=== PATIENT | female | born 1965 | race Caucasian/White ===

== ENCOUNTER → 2020-04-07 08:43 | Outpatient (BNVA) | payer OTHER, SELFPAY | PROVIDERS: PCP Internal Medicine; Visit Provider Student in an Organized Health Care Education/Training Program | DX: Z76.89 Persons encountering health services in other specified circumstances (principal) ==

== ENCOUNTER 2020-05-24 08:08 | Outpatient (REF) | payer OTHER, SELFPAY ==
--- NOTE | ~2020-05-24 | MR_ITS ---
EXAMINATION: MR KNEE WITHOUT CONTRAST, RIGHT CLINICAL INFORMATION: M25.561 - Pain in right knee. Instability. COMPARISON: None TECHNIQUE: MRI of the knee without contrast was performed using routine sequences on a high-field scanner. FINDINGS: MENISCI: Medial Meniscus: Free edge fraying is present at the posterior horn. No meniscal tears. Meniscal body is partially. Lateral Meniscus: Intact LIGAMENTS: Cruciate: Intact Collateral: Intact EXTENSOR MECHANISM: Insall-Salvati ratio is 0.9. Quadriceps and patellar tendons are intact. Focal edema signal is present in the superolateral Hoffa's fat pad between the patellar tendon and lateral trochlear facet. ARTICULAR CARTILAGE/BONE: Patellofemoral Compartment: There is moderate nonuniform and talar cartilage loss at the patella, more pronounced at the medial facet, with foci of full-thickness chondral fissuring, articular cortical irregularity, and subchondral cystic change. Subchondral cystic changes more pronounced at the lateral patellar facet inferiorly. Small to moderate size marginal osteophytes. At the medial trochlear facet, there is a 1.2 x 0.8 cm area of moderate to high-grade cartilage loss with full-thickness chondral fissuring and articular cortical irregularity. More mild chondral thinning is present in the surrounding trochlea. Medial Compartment: There is moderate to high-grade nonuniform and talar cartilage loss at the medial condyle, most severe at the posterior weightbearing surface, with articular cortical irregularity, subchondral sclerosis, subchondral cystic change. Mild to moderate nonuniform chondral thinning is present at the medial tibial plateau. Prominent marginal osteophytes. Lateral Compartment: Minimal chondral thinning is noted at the lateral tibial plateau anteriorly. JOINT FLUID AND BURSAE: Small joint effusion and a small multilocular Burton's cyst. There is an 8 mm cluster of low signal intensity loose body in the superior aspect of the Burton's cyst. A small amount chondral debris is present in the gastrocnemius recesses. MR/MR knee RT wo con IMPRESSION: 1. . Fraying at the posterior horn of the medial meniscus without a discrete tear. 2. Moderate medial compartment osteoarthritis. More mild to moderate osteoarthritis in the patellofemoral compartment. 3. Small joint effusion. An 8 mm loose body is present in the Burton's cyst superiorly.
== END 2020-05-24 08:09 | disposition home or self-care (01) ==
LOC: HO.MRI 08:08
PROVIDERS: Visit Provider Student in an Organized Health Care Education/Training Program
DX: M25.561 Pain in right knee (principal)
CPT/HCPCS: 73721

== ENCOUNTER 2022-11-21 08:02 | Outpatient (AMB) | payer OTHER, SELFPAY ==
[2022-11-21 08:40] VITALS: BP 140/76; PULSE 89; O2SAT 98; BMI 32.6
--- NOTE | 2022-11-21 08:40 | A.OFFVIS_ITS ---
Intake Vital Signs 11/21/22 08:40 Height 5 ft 7 in Weight 208 lb 1.862 oz BMI 32.6 BP 140/76 H Blood Pressure Location Lt brachial Position Sitting Pulse 89 Pulse Source Pulse Oximeter Pulse Oximetry (%) 98 Intake Visit Reasons: FM Intake Note: Pt seen today for FM follow up. Media/Instructional Designer Required: No Accompanied by: Self / Same As Patient Allergies penicillin V Allergy (Intermediate, Verified 11/21/22 08:41) Vomiting Erythromycin Allergy (Intermediate, Uncoded 11/21/22 08:41) vomiting Medication List - Last Reconciled 11/21/22 by Unruly Villalobos MD amlodipine 5 mg PO DAILY dulaglutide (Trulicity) 0.75 mg subcut QWEEK glipizide 5 mg PO DAILY ibuprofen 400 mg PO Q8H PRN insulin glargine (Lantus Solostar U-100 Insulin) units subcut losartan-hydrochlorothiazide 100-25 mg 1 tab PO DAILY HPI HPI Comments History of Present Illness Details This is a 57-year-old female with a past medical history of hand osteoarthritis who presents for evaluation of bilateral hand pain. Patient has pain in both and especially her PIP is and DIPs. The pain is worse in the morning and sometimes when going to bed. She takes ibuprofen 600 mg Twice daily to help the pain. She stated that she has had occupational therapy for her hands many years ago. She also has been having neck pain. Sometimes radiates to her right shoulder. She went to urgent care and was prescribed a muscle relaxant. She is unaware of any family history of autoimmune rheumatic disease. She also mentions that when warm water hits the skin on her legs she feels pain in her skin. 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 Female Reproductive History Menstrual Total pregnancies: 3 Number of Living Children: 3 Ab induced: 0 Review of Systems ENT Reports neck pain Musc Reports arthralgias and Reports neck pain Physical Exam Vital Signs: Last Vital Signs Pulse 89 11/21/22 08:40 BP 140/76 H 11/21/22 08:40 Pulse Ox 98 11/21/22 08:40 BMI result Body Mass Index 32.6 Const General: cooperative, healthy appearing and comfortable Nutritional Appearance: obese Orientation/consciousness: patient oriented x3 Limitations: no limitations HEENT Head: Yes normocephalic and Yes atraumatic Mouth: moist mucous membranes Resp Effort & Inspection: normal respiratory effort and able to speak in complete sentences Neuro General: patient oriented x3 Extrem Other: Bilateral Serenity's and Heberden's nodes that are mildly tender to palpation No active synovitis otherwise Negative Spurling's test bilateral Bilateral knee crepitus Assessment & Plan Assessment & Plan (1) Osteoarthritis of hands, bilateral: Code(s): M19.041 - Primary osteoarthritis, right hand; M19.042 - Primary osteoarthritis, left hand Qualifiers: Osteoarthritis type: primary Qualified Code(s): M19.041 - Primary osteoarthritis, right hand; M19.042 - Primary osteoarthritis, left hand Plan: This is a 57-year-old female with generalized osteoarthritis who presents for follow-up. Was last seen by Dr. Tanner in 2019. I do not see any signs of autoimmune rheumatic disease. Clinical picture consistent with bilateral hand osteoarthritis. Will check bilateral hand x-rays. Referred patient to occupational therapy. Advised patient to start using Tylenol Arthritis up to 3000 mg a day. Apply for Voltaren gel 4 times a day to affected joints. Can use ibuprofen sparingly. (2) Degenerative cervical disc: Code(s): M50.30 - Other cervical disc degeneration, unspecified cervical region Plan: Referred to physical therapy. Also referred to Pain Management for further evaluation Plan I spent 29 minutes reviewing patient's chart, evaluating patient, ordering diagnostic workup, counseling patient and documenting in the chart Orders: Orders OT Evaluation and Treatment Today M19.041 - Primary osteoarthritis, right hand, M19.042 - Primary osteoarthritis, left hand PT Evaluation and Treatment Today M50.30 - Other cervical disc degeneration, unspecified cervical region XR hand wrist LT Today M19.041 - Primary osteoarthritis, right hand, M19.042 - Primary osteoarthritis, left hand XR hand wrist RT Today M19.041 - Primary osteoarthritis, right hand, M19.042 - Primary osteoarthritis, left hand Referrals Pain Management Referral M50.30 - Other cervical disc degeneration, unspecified cervical region Coding Level of Care Code Est Pt Level 4 (60254) Diagnoses Osteoarthritis of hands, bilateral M19.041; M19.042 Osteoarthritis type: primary Degenerative cervical disc M50.30
== END 2022-11-21 09:18 | disposition home or self-care (01) ==
PROVIDERS: PCP Internal Medicine; Visit Provider Student in an Organized Health Care Education/Training Program
DX: M19.041 Primary osteoarthritis, right hand (principal); M19.042 Primary osteoarthritis, left hand; M50.30 Other cervical disc degeneration, unspecified cervical region
CPT/HCPCS: 99214

== ENCOUNTER 2022-11-21 08:02 | Outpatient (REF) | payer OTHER, SELFPAY ==
--- NOTE | ~2022-11-21 | XR_ITS ---
EXAMINATION: XR hand wrist LT, XR hand wrist RT CLINICAL INFORMATION: Primary osteoarthritis COMPARISON: Hand radiographs 07/25/2018 TECHNIQUE: 4 views of the bilateral hands and bilateral wrists FINDINGS: RIGHT HAND AND WRIST: No fracture or dislocation. Degenerative changes of the interphalangeal joints worst involving the third distal interphalangeal joint where there is moderate loss of joint space, degenerative spurring with the suggestion of a mild gullwing deformity which could be seen in the setting of erosive osteoarthritis, progressed from prior. Soft tissues are unremarkable. LEFT HAND AND WRIST: No acute fracture or dislocation. Remote appearing fracture deformity of the fifth metacarpal diaphysis unchanged from prior. Degenerative changes of the interphalangeal joints worst involving the third and fifth distal interphalangeal joint where there is moderate loss of joint space and degenerative spurring, progressed from 2019. Capsular calcifications adjacent to the radial aspect of the third PIP joint. No cortical erosion. Soft tissues are unremarkable. XR/XR hand wrist RT IMPRESSION: 1. Right hand and wrist: Degenerative changes of the interphalangeal joints worst involving the third distal interphalangeal joint where there is moderate loss of joint space, degenerative spurring with the suggestion of a mild gullwing deformity which could be seen in the setting of erosive osteoarthritis, progressed from prior. 2. Left hand and wrist: Degenerative changes of the interphalangeal joints worst involving the third and fifth distal interphalangeal joints where there is moderate loss of joint space and degenerative spurring, progressed from prior. Capsular calcifications adjacent to the radial aspect of the third PIP joint. No cortical erosion.
--- NOTE | ~2022-11-21 | XR_ITS ---
EXAMINATION: XR hand wrist LT, XR hand wrist RT CLINICAL INFORMATION: Primary osteoarthritis COMPARISON: Hand radiographs 07/25/2018 TECHNIQUE: 4 views of the bilateral hands and bilateral wrists FINDINGS: RIGHT HAND AND WRIST: No fracture or dislocation. Degenerative changes of the interphalangeal joints worst involving the third distal interphalangeal joint where there is moderate loss of joint space, degenerative spurring with the suggestion of a mild gullwing deformity which could be seen in the setting of erosive osteoarthritis, progressed from prior. Soft tissues are unremarkable. LEFT HAND AND WRIST: No acute fracture or dislocation. Remote appearing fracture deformity of the fifth metacarpal diaphysis unchanged from prior. Degenerative changes of the interphalangeal joints worst involving the third and fifth distal interphalangeal joint where there is moderate loss of joint space and degenerative spurring, progressed from 2019. Capsular calcifications adjacent to the radial aspect of the third PIP joint. No cortical erosion. Soft tissues are unremarkable. XR/XR hand wrist LT IMPRESSION: 1. Right hand and wrist: Degenerative changes of the interphalangeal joints worst involving the third distal interphalangeal joint where there is moderate loss of joint space, degenerative spurring with the suggestion of a mild gullwing deformity which could be seen in the setting of erosive osteoarthritis, progressed from prior. 2. Left hand and wrist: Degenerative changes of the interphalangeal joints worst involving the third and fifth distal interphalangeal joints where there is moderate loss of joint space and degenerative spurring, progressed from prior. Capsular calcifications adjacent to the radial aspect of the third PIP joint. No cortical erosion.
== END 2022-11-21 08:03 | disposition home or self-care (01) ==
LOC: HO.XRAY 08:02
PROVIDERS: PCP Internal Medicine; Visit Provider Student in an Organized Health Care Education/Training Program
DX: M19.041 Primary osteoarthritis, right hand (principal); M19.042 Primary osteoarthritis, left hand
CPT/HCPCS: 73110; 73130; 99212

== ENCOUNTER 2022-11-29 09:33 | Outpatient (REF) | payer OTHER, SELFPAY ==
--- NOTE | ~2022-11-29 | XR_ITS ---
EXAMINATION: XR CERVICAL SPINE CLINICAL INFORMATION: Other cervical disc degeneration, unspecified cervical region COMPARISON: None available. TECHNIQUE: 6 views of the cervical spine, inclusive of flexion and extension views, were obtained. FINDINGS: There is no fracture. Prevertebral soft tissues are within normal limits. There is moderate disc space narrowing at C3-C4, C4-C5, C5-C6 and C6-C7 with marginal osteophyte formation. There is straightening of the usual cervical lordosis which can be seen with muscle spasm or be due to patient positioning. There is mild retrolisthesis of C3 with respect to C4 which reduces on flexion is unchanged on extension. The neural foramina are patent. There is mild narrowing of the left neural foramina at C3-C4, C4-C5 and C5-C6. XR/XR cervical spine w flex/ext IMPRESSION: 1. Multilevel degenerative disc disease. 2. Straightening of the usual cervical lordosis which can be seen with muscle spasm or be due to patient positioning.
== END 2022-11-29 09:34 | disposition home or self-care (01) ==
LOC: HO.XRAY 09:33
PROVIDERS: PCP Internal Medicine; Visit Provider Registered Nurse Emergency
DX: M50.30 Other cervical disc degeneration, unspecified cervical region (principal); S46.819A Strain of other muscles, fascia and tendons at shoulder and upper arm level, unspecified arm, initial encounter; M79.18 Myalgia, other site; M47.812 Spondylosis without myelopathy or radiculopathy, cervical region
CPT/HCPCS: 72052; 99202

== ENCOUNTER 2022-11-29 09:33 | Outpatient (AMB) | payer OTHER, SELFPAY ==
--- NOTE | 2022-11-29 09:40 | A.OFFVIS_ITS ---
Intake Vital Signs 11/29/22 10:12 Height 5 ft 7 in Weight 206 lb 6 oz BMI 32.3 BP 165/82 H Blood Pressure Location Lt brachial Position Sitting Pulse 91 Pulse Source Pulse Oximeter Pulse Oximetry (%) 100 Oxygen Delivery Method Room Air Intake Visit Reasons: Cervical disc degeneration Intake Note: Pt here for cerv neck pain -sometimes radiating to R shoulder Allergies penicillin V Allergy (Intermediate, Verified 11/29/22 10:13) Vomiting Erythromycin Allergy (Intermediate, Uncoded 11/29/22 10:13) vomiting Medication List - Last Reconciled 11/29/22 by Machelle Alberts, RN amlodipine 5 mg PO DAILY dulaglutide (Trulicity) 0.75 mg subcut QWEEK glipizide 5 mg PO DAILY ibuprofen 400 mg PO Q8H PRN insulin glargine (Lantus Solostar U-100 Insulin) units subcut losartan-hydrochlorothiazide 100-25 mg 1 tab PO DAILY HPI HPI Comments History of Present Illness Details Dolores is a very pleasant 57 year old female who presents to the office today for evaluation and management of her chronic neck pain. 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 Pain is constant but some days is worse than others. She reports pain will be stable for a couple months but then she will experience acute exacerbation of unknown cause that may last for 2-3 months with pain 10/10. She was recently evaluated at urgent care where she had an XR of the cspine with dx of arthritis. She has been taking ibuprofen for the pain, 11/21/2022 she saw rheum where she was advised to limit ibuprofen and take OTC tylenol arthritis and utilize voltaren OTC cream which she has not started yet. Referral was placed for PT but she has not started or been called to schedule appointment. Patient has been diagnosed with fibromyalgia in the past, she was started on gabapentin which she took for a couple days and then stopped. She states she did not give the medication enough time to know if it helped. She states that she already takes too many medications and did not want to add more. Patient reports pain across her shoulders, tender to palpation. In terms of muscle damage condition is described as throbbing, shooting, sharp, crushing, wrenching, hot, burning, stinging, aching, tiring, sickening, fearful, punishing, radiating, squeezing and cool. Pain is negatively impacting patient's sleep, normal functioning, overall mood and ability to perform activities of daily living. The patient denies implantable devices, pacemaker or defibrillator. Patient denies current use of tobacco or illicit substances. Endorses occasional use of alcohol. 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 Answers questions appropriately. Fully engaged in examination. Skin: warm, dry, intact without visible rashes or lesions. HEENT: Normocephalic. Hearing intact. Cardiac: External chest normal in appearance. Respiratory: No cough, audible wheezing or stridor. Abdomen: without gross distension. Neurological: Oriented to person, place, time and situation. Thought process intact. No gait abnormalities appreciated. Psychiatric: Appropriate mood and affect. Good judgment and insight. Neck Other: Cervical Spine: Visible inspection without gross abnormality Moderate tenderness throughout bilateral upper and middle trapezius muscles, left greater than right. Nontender to palpation over cervical vertebrae Patient with decreased cervical ROM d/t increased pain with right and left lateral flexion Spurling compression test negative Elvey's tension test negative Lhermitte's test negative. BUE strength 5/5 DTR symmetrical and intact bilaterally. 2+ radial pulses. Assessment & Plan Assessment & Plan (1) Degenerative cervical disc: Code(s): M50.30 - Other cervical disc degeneration, unspecified cervical region (2) Trapezius muscle strain: Comment: bilateral Code(s): S46.819A - Strain of other muscles, fascia and tendons at shoulder and upper arm level, unspecified arm, initial encounter (3) Myofascial muscle pain: Code(s): M79.18 - Myalgia, other site (4) Arthropathy of cervical facet joint: Code(s): M47.812 - Spondylosis without myelopathy or radiculopathy, cervical region Salima Bernal is a very pleasant 57 year old female who presented to the office today for evaluation and management of her chronic neck/upper back pain. History, physical exam and provocative testing consistent with upper and middle bilateral trapezius strain, myofascial upper back pain and cervical facet arthro jesse. XR cspine ordered today. Patient will complete before next visit. She will engage in PT, order was placed by rheum but patient is requesting an order to take to PT office closer to her home. New order placed and provided to patient today. Continue with tylenol as directed by rheumatology. Topical compound cream ordered today, patient instructed on use. Do not use OTC voltaren cream while using the compound cream. Discussed options for treatment including diagnostic interventional testing, epidural steroid injections, peripheral nerve stimulation with Sprint, RFA and more permanent neuromodulation. If patient does not receive improvement in pain with topical cream combined with OTC tylenol and PT will plan for Fluoroscopy guided diagnostic bilateral C5-6-7 MBBs with local anesthetic. All questions and concerns have been answered and patient agrees with the plan. Follow up after injections and sooner if needed. Follow up after completing 3-4 weeks of physical therapy, sooner if needed. Orders: Orders PT Evaluation and Treatment Today M50.30 - Other cervical disc degeneration, unspecified cervical region, M79.18 - Myalgia, other site, S46.819A - Strain of other muscles, fascia and tendons at shoulder and upper arm level, unspecified arm, initial encounter XR cervical spine w flex/ext Today M50.30 - Other cervical disc degeneration, unspecified cervical region Medications: New cream base no.105 (bulk) (Base W301 cream) Diclofenac 5%, Baclofen 5%, Cyclobenzaprine 2%, Gabapentin 6%, Bupivacaine 2% SIG: apply pea-sized amount 3- 5 times daily to painful areas as needed 180 grams 1RF myofascial pain Coding Level of Care Code New Pt Level 4 (67033) Diagnoses Degenerative cervical disc M50.30 Trapezius muscle strain S46.819A Myofascial muscle pain M79.18 Arthropathy of cervical facet joint M47.812
[2022-11-29 10:12] VITALS: BP 165/82; PULSE 91; O2SAT 100; BMI 32.3
== END 2022-11-29 10:48 | disposition home or self-care (01) ==
PROVIDERS: PCP Internal Medicine; Visit Provider Registered Nurse Emergency
DX: M50.30 Other cervical disc degeneration, unspecified cervical region (principal); S46.819A Strain of other muscles, fascia and tendons at shoulder and upper arm level, unspecified arm, initial encounter; M79.18 Myalgia, other site; M47.812 Spondylosis without myelopathy or radiculopathy, cervical region
CPT/HCPCS: 99204

== ENCOUNTER 2022-12-29 09:26 | Outpatient (AMB) | payer OTHER, SELFPAY ==
--- NOTE | 2022-12-29 09:34 | A.OFFVIS_ITS ---
Intake Vital Signs 12/29/22 09:38 Height 5 ft 7 in Weight 207 lb 2 oz BMI 32.4 BP 144/70 H Blood Pressure Location Lt brachial Position Sitting Respiration 18 Pulse 88 Pulse Source Pulse Oximeter Pulse Oximetry (%) 96 Oxygen Delivery Method Room Air Intake Visit Reasons: 1 MONTH FOLLOW UP Allergies penicillin V Allergy (Intermediate, Verified 12/29/22 09:31) Vomiting Erythromycin Allergy (Intermediate, Uncoded 11/29/22 10:13) vomiting HPI HPI Comments History of Present Illness Details Dolores presents back to the office today for follow up neck pain. Patient has been attending PT since her last visit, she has 4 sessions left with planned evaluation with them after those sessions. She reports improvement in her pain, range of motion and functioning since starting PT. Pain today is 0/ 10. Xray reviewed with patient today, results as per below. She reports pain to bilateral hands, she was evaluated by rheum but does not remember what they had planned for her hand pain. Prior: Dolores is a very pleasant 57 year old female who presents to the office today for evaluation and management of her chronic neck pain. 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 Pain is constant but some days is worse than others. She reports pain will be stable for a couple months but then she will experience acute exacerbation of unknown cause that may last for 2-3 months with pain 10/10. She was recently evaluated at urgent care where she had an XR of the cspine with dx of arthritis. She has been taking ibuprofen for the pain, 11/21/2022 she saw rheum where she was advised to limit ibuprofen and take OTC tylenol arthritis and utilize voltaren OTC cream which she has not started yet. Referral was placed for PT but she has not started or been called to schedule appointment. Patient has been diagnosed with fibromyalgia in the past, she was started on gabapentin which she took for a couple days and then stopped. She states she di d not give the medication enough time to know if it helped. She states that she already takes too many medications and did not want to add more. Patient reports pain across her shoulders, tender to palpation. In terms of muscle damage condition is described as throbbing, shooting, sharp, crushing, wrenching, hot, burning, stinging, aching, tiring, sickening, fearful, punishing, radiating, squeezing and cool. Pain is negatively impacting patient's sleep, normal functioning, overall mood and ability to perform activities of daily living. The patient denies implantable devices, pacemaker or defibrillator. Patient denies current use of tobacco or illicit substances. Endorses occasional use of alcohol. 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 Answers questions appropriately. Fully engaged in examination. Skin: warm, dry, intact without visible rashes or lesions. HEENT: Normocephalic. Hearing intact. Cardiac: External chest normal in appearance. Respiratory: No cough, audible wheezing or stridor. Abdomen: without gross distension. Neurological: Oriented to person, place, time and situation. Thought process intact. No gait abnormalities appreciated. Psychiatric: Appropriate mood and affect. Good judgment and insight. Results Reviewed Results Reviewed: 11/30/2022 FINDINGS: There is no fracture. Prevertebral soft tissues are within normal limits. There is moderate disc space narrowing at C3-C4, C4-C5, C5-C6 and C6-C7 with marginal osteophyte formation. There is straightening of the usual cervical lordosis which can be seen with muscle spasm or be due to patient positioning. There is mild retrolisthesis of C3 with respect to C4 which reduces on flexion is unchanged on extension. The neural foramina are patent. There is mild narrowing of the left neural foramina at C3-C4, C4-C5 and C5-C6. IMPRESSION: 1. Multilevel degenerative disc disease. 2. Straightening of the usual cervical lordosis which can be seen with muscle spasm or be due to patient positioning. Assessment & Plan Assessment & Plan (1) Degenerative cervical disc: Code(s): M50.30 - Other cervical disc degeneration, unspecified cervical region (2) Trapezius muscle strain: Comment: bilateral Code(s): S46.819A - Strain of other muscles, fascia and tendons at shoulder and upper arm level, unspecified arm, initial encounter (3) Myofascial muscle pain: Code(s): M79.18 - Myalgia, other site (4) Arthropathy of cervical facet joint: Code(s): M47.812 - Spondylosis without myelopathy or radiculopathy, cervical region Plan Dolores presents to the office today for follow-up. She reports improvement in her pain with physical therapy which she is still attending. She has no pain in her neck at this time. Patient will continue with physical therapy as planned. For her bilateral hand pain she was advised to follow-up with Rheumatology. Given patient's excellent response to conservative treatment, will defer interventional procedures at this time. Patient will call the office if the pain worsens or returns to discuss interventional pain management options. Coding Level of Care Code Est Pt Level 3 (76966) Diagnoses Degenerative cervical disc M50.30 Trapezius muscle strain S46.819A Myofascial muscle pain M79.18 Arthropathy of cervical facet joint M47.812
[2022-12-29 09:38] VITALS: BP 144/70; PULSE 88; RESP 18; O2SAT 96; BMI 32.4
== END 2022-12-29 10:44 | disposition home or self-care (01) ==
PROVIDERS: PCP Internal Medicine; Visit Provider Registered Nurse Emergency
DX: M50.30 Other cervical disc degeneration, unspecified cervical region (principal); S46.819A Strain of other muscles, fascia and tendons at shoulder and upper arm level, unspecified arm, initial encounter; M79.18 Myalgia, other site; M47.812 Spondylosis without myelopathy or radiculopathy, cervical region
CPT/HCPCS: 99213

== ENCOUNTER → 2022-12-29 09:26 | Outpatient (BNVA) | payer OTHER, SELFPAY | PROVIDERS: PCP Internal Medicine; Visit Provider Registered Nurse Emergency | DX: M50.30 Other cervical disc degeneration, unspecified cervical region (principal); M79.18 Myalgia, other site; M47.812 Spondylosis without myelopathy or radiculopathy, cervical region; S46.819D Strain of other muscles, fascia and tendons at shoulder and upper arm level, unspecified arm, subsequent encounter | CPT/HCPCS: 99212 ==

== ENCOUNTER 2023-01-10 11:30 | Outpatient (RCR) | payer OTHER, SELFPAY ==
--- NOTE | 2023-01-12 10:54 | MHC.OT.DC ---
[address] [phone] F: [phone] Occupational Therapy Discharge Note Patient Name: Dolores Abbott Provider: Unruly Villalobos Diagnosis: Bilateral hand OA Date of Surgery: Date of Evaluation: 01/03/23 Date of Discharge: 01/12/23 Treatments to Date: 4 Cancellations to Date: No Shows to Date: Discharge Status: Achieved Goals Improved Function Independent with HEP Discharge Summary: Pt has been seen for bilateral hand OA joint pain and hand weakness . Pt now reports pain free digits with joint discomfort and stiffness in the am . Bilateral post framer and pinch strengths are WNL Pt is independent with self management of hand OA jt pain Goals met Electronically Signed By: Zoie Toscano OT CHT CLT Reviewed/agree with student documentation: Therapist: Please Sign and return to therapist, thank you for your referral.
== END 2023-01-12 10:55 | disposition home or self-care (01) ==
LOC: HO.OT 11:30
PROVIDERS: PCP Internal Medicine; Visit Provider Student in an Organized Health Care Education/Training Program
DX: M19.041 Primary osteoarthritis, right hand (principal); M19.042 Primary osteoarthritis, left hand
CPT/HCPCS: 29125; 97110; 97165; 97535; 97760

== ENCOUNTER 2023-01-30 13:29 | Outpatient (AMB) | payer OTHER, SELFPAY ==
[2023-01-30 13:46] VITALS: BP 162/76; PULSE 88; RESP 18; O2SAT 99; BMI 31.8
--- NOTE | 2023-01-30 13:46 | A.OFFVIS_ITS ---
Intake Vital Signs 01/30/23 13:46 Height 5 ft 7 in Weight 203 lb BMI 31.8 BP 162/76 H Blood Pressure Location Lt brachial Position Sitting Respiration 18 Pulse 88 Pulse Source Pulse Oximeter Pulse Oximetry (%) 99 Oxygen Delivery Method Room Air Intake Visit Reasons: SEVERE NECK PAIN Allergies penicillin V Allergy (Intermediate, Verified 01/30/23 13:46) Vomiting Erythromycin Allergy (Intermediate, Uncoded 11/29/22 10:13) vomiting HPI HPI Comments History of Present Illness Details Patient presents back to the office today for worsening neck pain. Patient reports the pain retured several days ago, she went to urgent care and received IM Toradol and 1 week prescription of Cyclobenzaprine. The muscle relaxer allows her to get some sleep but otherwise the pain limits her daily activities, normal functioning and overall mood. She completed PT, benefit during PT session but pain returns right after. She has been doing HEP as directed by PT but pain persists. She denies radiation of the pain down either arm. Denies upper extremity weakness, numbness, burning or tingling. Prior: Dolores presents back to the office today for follow up neck pain. Patient has been attending PT since her last visit, she has 4 sessions left with planned evaluation with them after those sessions. She reports improvement in her pain, range of motion and functioning since starting PT. Pain today is 0 /10. Xray reviewed with patient today, results as per below. She reports pain to bilateral hands, she was evaluated by rheum but does not remember what they had planned for her hand pain. Prior: Dolores is a very pleasant 57 year old female who presents to the office today for evaluation and management of her chronic neck pain. 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 Pain is constant but some days is worse than others. She reports pain will be stable for a couple months but then she will experience acute exacerbation of unknown cause that may last for 2-3 months with pain 10/10. She was recently evaluated at urgent care where she had an XR of the cspine with dx of arthritis. She has been taking ibuprofen for the pain, 11/21/2022 she saw rheum where she was advised to limit ibuprofen and take OTC tylenol arthritis and utilize voltaren OTC cream which she has not started yet. Referral was placed for PT but she has not started or been called to schedule appointment. Patient has been diagnosed with fibromyalgia in the past, she was started on gabapentin which she took for a couple days and then stopped. She states she d id not give the medication enough time to know if it helped. She states that she already takes too many medications and did not want to add more. Patient reports pain across her shoulders, tender to palpation. In terms of muscle damage condition is described as throbbing, shooting, sharp, crushing, wrenching, hot, burning, stinging, aching, tiring, sickening, fearful, punishing, radiating, squeezing and cool. Pain is negatively impacting patient's sleep, normal functioning, overall mood and ability to perform activities of daily living. The patient denies implantable devices, pacemaker or defibrillator. Patient denies current use of tobacco or illicit substances. Endorses occasional use of alcohol. 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 Answers questions appropriately. Fully engaged in examination. Skin: warm, dry, intact without visible rashes or lesions. HEENT: Normocephalic. Hearing intact. Cardiac: External chest normal in appearance. Respiratory: No cough, audible wheezing or stridor. Abdomen: without gross distension. Neurological: Oriented to person, place, time and situation. Thought process intact. No gait abnormalities appreciated. Psychiatric: Appropriate mood and affect. Good judgment and insight. Neck Other: Cervical Spine: Visible inspection without gross abnormality Tenderness to palpation bilateral cervical paraspinal muscles Patient with decreased cervical ROM in all planes, increased pain with right and left lateral flexion Spurling compression test positive Elvey's tension test negative Lhermitte's test negative. BUE strength 5/5 DTR symmetrical and intact bilaterally. 2+ radial pulses. Results Reviewed Results Reviewed: 11/30/2022 FINDINGS: There is no fracture. Prevertebral soft tissues are within normal limits. There is moderate disc space narrowing at C3-C4, C4-C5, C5-C6 and C6-C7 with marginal osteophyte formation. There is straightening of the usual cervical lordosis which can be seen with muscle spasm or be due to patient positioning. There is mild retrolisthesis of C3 with respect to C4 which reduces on flexion is unchanged on extension. The neural foramina are patent. There is mild narrowing of the left neural foramina at C3-C4, C4-C5 and C5-C6. IMPRESSION: 1. Multilevel degenerative disc disease. 2. Straightening of the usual cervical lordosis which can be seen with muscle spasm or be due to patient positioning. Assessment & Plan Assessment & Plan (1) Degenerative cervical disc: Code(s): M50.30 - Other cervical disc degeneration, unspecified cervical region (2) Trapezius muscle strain: Comment: bilateral Code(s): S46.819A - Strain of other muscles, fascia and tendons at shoulder and upper arm level, unspecified arm, initial encounter (3) Myofascial muscle pain: Code(s): M79.18 - Myalgia, other site (4) Arthropathy of cervical facet joint: Code(s): M47.812 - Spondylosis without myelopathy or radiculopathy, cervical region (5) Cervical spondylolysis: Code(s): M43.02 - Spondylolysis, cervical region Plan Dolores presents to the office today for follow-up. Pain has worsened since last visit to the office. She has failed conservative therapy including PT, NSAIDs, Tylenol, Muscle relaxers and HEP. Will send prescription for Tizanidine 2mg po BID, patient instructed on use. Do not combine with cyclobenzaprine, alcoohol or other DISPATCHER REFINERY depressants. Discussed options for treatment including diagnostic interventional testing, steroid injections, peripheral nerve stimulation with Sprint, RFA and more permanent neuromodulation. Informational pamphlets provided. Will schedule patient for Fluoroscopy guided bilateral diagnostic C4-5-6 MBBs with local anesthetic. With reported good results will plan for bilateral C5- possible C4, possible C6, MB Sprint starting with most painful side, second side to follow in 2 weeks. All questions and concerns have been answered and patient agrees with the plan. Follow up after injections and sooner if needed. Medications: New tizanidine Discontinue Cyclobenzaprine. May cause drowsiness, do not drive while taking this medication. Do not take with other DISPATCHER REFINERY Depressants 2 mg PO BID PRN 30 tabs 0RF muscle spasticity Coding Level of Care Code Est Pt Level 4 (50729) Diagnoses Degenerative cervical disc M50.30 Trapezius muscle strain S46.819A Myofascial muscle pain M79.18 Arthropathy of cervical facet joint M47.812 Cervical spondylolysis M43.02
== END 2023-01-30 14:01 | disposition home or self-care (01) ==
PROVIDERS: PCP Internal Medicine; Visit Provider Registered Nurse Emergency
DX: M50.30 Other cervical disc degeneration, unspecified cervical region (principal); S46.819A Strain of other muscles, fascia and tendons at shoulder and upper arm level, unspecified arm, initial encounter; M79.18 Myalgia, other site; M47.812 Spondylosis without myelopathy or radiculopathy, cervical region; M43.02 Spondylolysis, cervical region
CPT/HCPCS: 99214

== ENCOUNTER → 2023-01-30 13:29 | Outpatient (BNVA) | payer OTHER, SELFPAY | PROVIDERS: PCP Internal Medicine; Visit Provider Registered Nurse Emergency | DX: M50.322 Other cervical disc degeneration at C5-C6 level (principal); M47.812 Spondylosis without myelopathy or radiculopathy, cervical region; M43.02 Spondylolysis, cervical region; M79.7 Fibromyalgia; S46.811A Strain of other muscles, fascia and tendons at shoulder and upper arm level, right arm, initial encounter; S46.812A Strain of other muscles, fascia and tendons at shoulder and upper arm level, left arm, initial encounter; X58.XXXA Exposure to other specified factors, initial encounter; Y93.9 Activity, unspecified; Y92.9 Unspecified place or not applicable; Y99.8 Other external cause status | CPT/HCPCS: 99212 ==

== ENCOUNTER 2023-05-17 09:12 | Outpatient (AMB) | payer OTHER, SELFPAY ==
--- NOTE | 2023-05-17 09:21 | MHC.OFFVIS ---
Intake Vital Signs 05/17/23 09:22 Height 5 ft 7 in Weight 195 lb 1.745 oz BMI 30.6 BP 134/80 Blood Pressure Location Rt brachial Position Sitting Pulse 87 Pulse Source Pulse Oximeter Temp 96.7 F L Temp Source Skin Pulse Oximetry (%) 99 Oxygen Delivery Method Room Air Intake Visit Reasons: OA Intake Note: Patient last seen 11/21/22 presents today for follow up and test results. Reports being seen at [facility] ED and urgent care and since last visit for increased pain. Also reports fall approx 2 months ago and has increased left knee pain. Punch Press Operator Required: No Accompanied by: Self / Same As Patient Allergies penicillin V Allergy (Intermediate, Verified 05/17/23 09:27) Vomiting Erythromycin Allergy (Intermediate, Uncoded 05/17/23 09:27) vomiting Medication List - Last Reconciled 05/17/23 by Unruly Villalobos MD amlodipine 5 mg PO DAILY atorvastatin 20 mg PO DAILY cream base no.105 (bulk) (Base W301 cream) Diclofenac 5%, Baclofen 5%, Cyclobenzaprine 2%, Gabapentin 6%, Bupivacaine 2% SIG: apply pea-sized amount 3-5 times daily to painful areas as needed dulaglutide (Trulicity) mg subcut empagliflozin (Jardiance) 25 mg PO DAILY ibuprofen 400 mg PO Q8H PRN insulin glargine (Lantus Solostar U-100 Insulin) units subcut losartan-hydrochlorothiazide 100-25 mg 1 tab PO DAILY tizanidine 2 mg PO BID PRN HPI HPI Comments History of Present Illness Details 58-year-old female with osteoarthritis and fibromyalgia returns for follow-up. She was evaluated by pain management and will be going for a therapeutic trial procedure sometime soon. She states that she continues to have diffuse pain everywhere. She states that she was diagnosed with fibromyalgia in the past and took gabapentin for some time and it was not helpful. Patient has some anxiety, she has difficulty sleeping. She sleeps 2 hours nightly. She was told that she snores. Initial history: This is a 57-year-old female with a past medical history of hand osteoarthritis who presents for evaluation of bilateral hand pain. Patient has pain in both and especially her PIP is and DIPs. The pain is worse in the morning and sometimes when going to bed. She takes ibuprofen 600 mg Twice daily to help the pain. She stated that she has had occupational therapy for her hands many years ago. She also has been having neck pain. Sometimes radiates to her right shoulder. She went to urgent care and was prescribed a muscle relaxant. She is unaware of any family history of autoimmune rheumatic disease. She also mentions that when warm water hits the skin on her legs she feels pain in her skin. 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 Review of Systems ENT Reports neck pain Musc Reports arthralgias, Reports joint swelling and Reports neck pain Physical Exam Vital Signs: Last Vital Signs Temp 96.7 F L 05/17/23 09:22 Pulse 87 05/17/23 09:22 BP 134/80 05/17/23 09:22 Pulse Ox 99 05/17/23 09:22 Oxygen Delivery Method Room Air 05/17/23 09:22 BMI result Body Mass Index 30.6 Const General: cooperative, healthy appearing and comfortable Nutritional Appearance: obese Orientation/consciousness: patient oriented x3 Limitations: no limitations HEENT Head: Yes normocephalic and Yes atraumatic Mouth: moist mucous membranes Resp Effort & Inspection: normal respiratory effort and able to speak in complete sentences Neuro General: patient oriented x3 Extrem Other: Bilateral Serenity's and Heberden's nodes that are mildly tender to palpation No active synovitis otherwise Negative Spurling's test bilateral Bilateral knee crepitus Assessment & Plan Assessment & Plan (1) Fibromyalgia: Code(s): M79.7 - Fibromyalgia Plan: 58-year-old female with and osteoarthritis returns for follow-up. Discussed management of fibromyalgia with patient. Is a noninflammatory, non-autoimmune central afferent processing disorder leading to a diffuse pain syndrome. I suggested that patient try to address her underlying psychiatric issues, anxiety/depression. I suggested evaluation by a therapist and/or a psychiatrist. Try to follow sleep hygiene practices. Consider a referral for a sleep study to rule out obstructive sleep apnea by her PCP. Patient would benefit from increased physical activity, either through formal physical therapy or by joining a gym. Advised patient that she should start activity slowly and increase as tolerated. Consider low-impact exercises such as walking, swimming, aqua therapy stretching, yoga. Patient failed gabapentin in the past. Follow-up with PCP (2) Degenerative cervical disc: Code(s): M50.30 - Other cervical disc degeneration, unspecified cervical region Plan: Recently evaluated by Pain Management and scheduled for a trial procedure Plan I spent 29 minutes reviewing patient's chart, evaluating patient, counseling patient and documenting in the chart Coding Level of Care Code Est Pt Level 3 (30091) Diagnoses Fibromyalgia M79.7 Degenerative cervical disc M50.30
[2023-05-17 09:22] VITALS: BP 134/80; PULSE 87; TEMP 35.9; O2SAT 99; BMI 30.6
== END 2023-05-17 10:16 | disposition home or self-care (01) ==
PROVIDERS: PCP Internal Medicine; Visit Provider Student in an Organized Health Care Education/Training Program
DX: M79.7 Fibromyalgia (principal); M50.30 Other cervical disc degeneration, unspecified cervical region
CPT/HCPCS: 99213

== ENCOUNTER → 2023-05-17 09:12 | Outpatient (BNVA) | payer OTHER, SELFPAY | PROVIDERS: PCP Internal Medicine; Visit Provider Student in an Organized Health Care Education/Training Program | DX: M79.7 Fibromyalgia (principal); M19.90 Unspecified osteoarthritis, unspecified site; M50.30 Other cervical disc degeneration, unspecified cervical region | CPT/HCPCS: 99212 ==